=== PATIENT | female | born 2000 | race Hispanic/Latino ===

== ENCOUNTER 2024-08-15 11:44 | Emergency (ER) | payer SELFPAY ==
[~2024-08-15] VITALS: Ht 157.5 cm; Wt 82.0 kg
[2024-08-15 13:49] VITALS: BP 127/84
== END 2024-08-15 13:54 | disposition home or self-care (01) | DRG 951 ==
LOC: ED 11:44
DX: Z48.01 Encounter for change or removal of surgical wound dressing (principal)